=== PATIENT | male | born 2000 | race Hispanic/Latino ===

== ENCOUNTER 2023-10-16 22:38 | Emergency (ER) | payer SELFPAY ==
[2023-10-16] MEDS ORDERED: Ibuprofen 200 MG TAB ONE (23:41)
[2023-10-16] MEDS ORDERED: Doxycycline 100 MG CAP PO SCH (23:45)
== END 2023-10-17 00:13 | disposition home or self-care (01) ==
LOC: CSHERS 22:38
DX: L03.211 Cellulitis of face (principal)
CPT/HCPCS: 99283